=== PATIENT | female | born 1990 | race Asian ===

== ENCOUNTER → 2019-01-16 | Outpatient (CLI) | payer MEDICAID | LOC: FIMAGING 07:29 | PROVIDERS: ATTEND Obstetrics & Gynecology | DX: Z36.89 Encounter for other specified antenatal screening (principal); D68.61 Antiphospholipid syndrome; Z3A.27 27 weeks gestation of pregnancy; N83.292 Other ovarian cyst, left side ==

== ENCOUNTER → 2019-02-13 | Outpatient (CLI) | payer MEDICAID | LOC: FIMAGING 09:11 ==